=== PATIENT | female | born 1950 | race Caucasian/White ===

== ENCOUNTER → 2017-10-25 11:45 | Outpatient (CLI) | payer MEDICARE, OTHER, SELFPAY ==
[2017-10-25 13:22] LABS: Absolute Lymphocyte Count 2.29 X10^3/ul (0.83-4.51); Absolute Neutrophil Count 6.4 X10^3/uL (2.0-7.7); Basophil# 0.01 X10^3/uL; Basophil% 0.1 % (0-1); Eosinophil# 0.11 X10^3/uL; Eosinophils% 1.2 % (0-5); Hematocrit 41.9 % (37-47); Hemoglobin 13.4 g/dl (12.0-15.0); Lymphocyte # 2.29 X10^3/ul (4.0); Lymphocyte % 24.1 % (19-41); Mean Corpuscular Hgb 31.1 pg (27.0-32.0); Mean Corpuscular Volume 97.2 fL (81-99); Mean Platelet Vol. 9.6 fl (6.2-12.0); Monocyte# 0.67 X10^3/uL; Monocyte% 7.1 % (0-10); Neutrophil % 67.4 % (47-70); Platelet Count 180 K/mm3 (150-450); RBC Distribution Width CV 14.9 % (11.6-14.6); RBC Distribution Width SD 51.4 fl (35.1-43.9); Red Blood Count 4.31 M/mm3 (4.2-5.4); White Blood Count 9.5 K/mm3 (4.4-11.0)
[2017-10-25 13:30] LABS: POSITIVE COUNT NO; POSITIVE DIFFERENTIAL NO; POSITIVE MORPHOLOGY NO
[2017-10-25 13:55] LABS: ALB/GLOB Ratio 0.7 RATIO (0.9-2.4); AST(SGOT) 13 U/L (15-37); Alanine Aminotransfer ALT/SGPT 17 U/L (13-56); Albumin, Serum 2.9 g/dL (3.2-5.0); Alkaline Phosphatase 69 U/L (45-117); Anion Gap 6 (5-15); BUN 27 mg/dL (7-18); BUN/Creat Ratio 30.1 RATIO (10-20); Calcium,Total 8.8 mg/dL (8.5-10.1); Chloride 100 mmol/L (98-107); EST Glomerular Filtration Rate 67 mL/min (>60); Est Glom Filt Rate - Afr Amer 81 mL/min (>60); Glucose 216 mg/dL (74-106); Potassium 4.2 mmol/L (3.5-5.1); Protein, Total 6.9 g/dL (6.4-8.2); Sodium Level 138 mmol/L (136-145)
== END ==
PROVIDERS: Family Provider Family Medicine; PCP Family Medicine; Visit Provider Internal Medicine Rheumatology
DX: L40.59 Other psoriatic arthropathy (principal); Z79.899 Other long term (current) drug therapy; L40.8 Other psoriasis; M79.7 Fibromyalgia; M16.0 Bilateral primary osteoarthritis of hip; M17.0 Bilateral primary osteoarthritis of knee
CPT/HCPCS: 36415; 80053; 85025

== ENCOUNTER → 2017-12-09 12:09 | Outpatient (CLI) | payer MEDICARE, OTHER, SELFPAY ==
[2017-12-09 13:38] LABS: Color, Urine Yellow (Yellow); Glucose, Dipstick 100 mg/dl (Normal); Ketone-Dipstick Negative (Negative); Leukocyte Esterase-Dipstick Negative /ul (Negative); Nitrite-Dipstick Negative (Negative); Occult Blood-Urine Negative /ul (Negative); Protein-Dipstick Negative (Negative); Specific Gravity, Urine 1.015 (1.002-1.030); Urine Bilirubin Dipstick Negative (Negative); Urine Clarity Clear (Clear); Urine Urobilinogen Normal (Normal)
== END ==
PROVIDERS: Family Provider Family Medicine; PCP Family Medicine; Visit Provider Family Medicine
DX: N39.0 Urinary tract infection, site not specified (principal)
CPT/HCPCS: 81002

== ENCOUNTER → 2018-01-03 09:51 | Outpatient (CLI) | payer MEDICARE, OTHER, SELFPAY | PROVIDERS: Family Provider Family Medicine; PCP Family Medicine; Visit Provider Urology | DX: N39.0 Urinary tract infection, site not specified (principal) | CPT/HCPCS: 87086; 87088 ==

== ENCOUNTER → 2018-01-12 11:33 | Outpatient (CLI) | payer MEDICARE, OTHER, SELFPAY ==
[2018-01-12 12:26] LABS: Amphetamine Urine VISTA NEGATIVE (<1000 ng/mL); Barbiturate Urine VISTA NEGATIVE (< 200 ng/mL); Benzodiazepine Urine VISTA NEGATIVE (< 200 ng/mL); Cocaine Urine VISTA NEGATIVE (< 300 ng/mL); Ecstacy Urine VISTA NEGATIVE (< 500 ng/mL); Methadone Urine VISTA NEGATIVE (< 300 ng/mL); PCP Urine VISTA NEGATIVE (< 25 ng/mL); THC Urine VISTA NEGATIVE (< 50 ng/mL); Vista UDS pH Range 6
== END ==
PROVIDERS: Family Provider Family Medicine; PCP Family Medicine; Visit Provider Anesthesiology Pain Medicine
DX: F11.20 Opioid dependence, uncomplicated (principal)
CPT/HCPCS: 80307

== ENCOUNTER → 2018-01-23 13:53 | Outpatient (CLI) | payer MEDICARE, OTHER, SELFPAY ==
[2018-01-23 15:43] LABS: Absolute Lymphocyte Count 1.84 X10^3/ul (0.83-4.51); Absolute Neutrophil Count 7.7 X10^3/uL (2.0-7.7); Basophil# 0.01 X10^3/uL; Basophil% 0.1 % (0-1); Eosinophil# 0.19 X10^3/uL; Eosinophils% 1.8 % (0-5); Hematocrit 41.4 % (37-47); Hemoglobin 12.8 g/dl (12.0-15.0); Lymphocyte # 1.84 X10^3/ul (4.0); Lymphocyte % 17.4 % (19-41); Mean Corp Hgb Conc 30.9 g/gl (32-36); Mean Corpuscular Hgb 29.3 pg (27.0-32.0); Mean Corpuscular Volume 94.7 fL (81-99); Mean Platelet Vol. 9.4 fl (6.2-12.0); Monocyte# 0.87 X10^3/uL; Monocyte% 8.2 % (0-10); Neutrophil # 7.66 X10^3/uL (2.7-7.7); Neutrophil % 72.2 % (47-70); Platelet Count 191 K/mm3 (150-450); RBC Distribution Width CV 15.4 % (11.6-14.6); RBC Distribution Width SD 52.1 fl (35.1-43.9); Red Blood Count 4.37 M/mm3 (4.2-5.4); White Blood Count 10.6 K/mm3 (4.4-11.0)
[2018-01-23 15:47] LABS: ALB/GLOB Ratio 0.8 RATIO (0.9-2.4); AST(SGOT) 10 U/L (15-37); Alanine Aminotransfer ALT/SGPT 18 U/L (13-56); Alkaline Phosphatase 63 U/L (45-117); BUN 22 mg/dL (7-18); BUN/Creat Ratio 24.5 RATIO (10-20); Calcium,Total 9.1 mg/dL (8.5-10.1); Chloride 108 mmol/L (98-107); EST Glomerular Filtration Rate 67 mL/min (>60); Est Glom Filt Rate - Afr Amer 81 mL/min (>60); Globulin 3.8 g/dL (2.2-4.2); Glucose 304 mg/dL (74-106); Potassium 5.3 mmol/L (3.5-5.1); Protein, Total 6.8 g/dL (6.4-8.2); Sodium Level 145 mmol/L (136-145)
[2018-01-23 15:48] LABS: Anion Gap 10 (5-15)
[2018-01-23 16:07] LABS: POSITIVE COUNT NO; POSITIVE DIFFERENTIAL NO; POSITIVE MORPHOLOGY NO
== END ==
PROVIDERS: Family Provider Family Medicine; PCP Family Medicine; Visit Provider Internal Medicine Rheumatology
DX: L40.59 Other psoriatic arthropathy (principal); Z79.899 Other long term (current) drug therapy; L40.8 Other psoriasis; M79.7 Fibromyalgia; M16.0 Bilateral primary osteoarthritis of hip; M17.0 Bilateral primary osteoarthritis of knee
CPT/HCPCS: 36415; 80053; 85025

== ENCOUNTER → 2018-03-03 14:16 | Outpatient (CLI) | payer MEDICARE, OTHER, SELFPAY ==
[2018-03-03 14:57] LABS: Absolute Lymphocyte Count 1.94 X10^3/ul (0.83-4.51); Absolute Neutrophil Count 10.2 X10^3/uL (2.0-7.7); Basophil# 0.01 X10^3/uL; Basophil% 0.1 % (0-1); Eosinophil# 0.14 X10^3/uL; Eosinophils% 1.1 % (0-5); Hematocrit 44.1 % (37-47); Hemoglobin 13.9 g/dl (12.0-15.0); Lymphocyte # 1.94 X10^3/ul (4.0); Lymphocyte % 14.8 % (19-41); Mean Corp Hgb Conc 31.5 g/gl (32-36); Mean Corpuscular Volume 92.1 fL (81-99); Mean Platelet Vol. 9.3 fl (6.2-12.0); Monocyte% 6.1 % (0-10); Neutrophil # 10.16 X10^3/uL (2.7-7.7); Neutrophil % 77.7 % (47-70); Platelet Count 170 K/mm3 (150-450); RBC Distribution Width CV 14.7 % (11.6-14.6); RBC Distribution Width SD 50.3 fl (35.1-43.9); Red Blood Count 4.79 M/mm3 (4.2-5.4); White Blood Count 13.1 K/mm3 (4.4-11.0)
[2018-03-03 14:58] LABS: POSITIVE COUNT NO; POSITIVE DIFFERENTIAL NO; POSITIVE MORPHOLOGY NO
[2018-03-03 15:59] LABS: ALB/GLOB Ratio 0.8 RATIO (0.9-2.4); AST(SGOT) 10 U/L (15-37); Alanine Aminotransfer ALT/SGPT 16 U/L (13-56); Albumin, Serum 3.2 g/dL (3.2-5.0); Alkaline Phosphatase 70 U/L (45-117); Anion Gap 7 (5-15); BUN 20 mg/dL (7-18); BUN/Creat Ratio 22.7 RATIO (10-20); Chloride 107 mmol/L (98-107); Creatinine, Serum 0.88 mg/dL (0.55-1.02); EST Glomerular Filtration Rate 68 mL/min (>60); Est Glom Filt Rate - Afr Amer 82 mL/min (>60); Globulin 4.1 g/dL (2.2-4.2); Glucose 283 mg/dL (74-106); Potassium 4.4 mmol/L (3.5-5.1); Protein, Total 7.3 g/dL (6.4-8.2); Sodium Level 140 mmol/L (136-145)
== END ==
PROVIDERS: Family Provider Family Medicine; PCP Family Medicine; Visit Provider Internal Medicine Rheumatology
DX: L40.59 Other psoriatic arthropathy (principal); Z79.899 Other long term (current) drug therapy; L40.8 Other psoriasis; M79.7 Fibromyalgia; M16.0 Bilateral primary osteoarthritis of hip; M17.0 Bilateral primary osteoarthritis of knee; M21.40 Flat foot [pes planus] (acquired), unspecified foot; K21.9 Gastro-esophageal reflux disease without esophagitis; E11.9 Type 2 diabetes mellitus without complications; I10 Essential (primary) hypertension; K58.9 Irritable bowel syndrome, unspecified; F41.9 Anxiety disorder, unspecified; F32.9 Major depressive disorder, single episode, unspecified; I27.20 Pulmonary hypertension, unspecified; Q03.8 Other congenital hydrocephalus
CPT/HCPCS: 36415; 80053; 85025

== ENCOUNTER → 2018-03-17 13:46 | Outpatient (CLI) | payer MEDICARE, OTHER, SELFPAY ==
[2018-03-17 15:27] LABS: Color, Urine Yellow (Yellow); Glucose, Dipstick 100 mg/dl (Normal); Ketone-Dipstick 5 mg/dl (Negative); Leukocyte Esterase-Dipstick 500 /ul (Negative); Nitrite-Dipstick Positive (Negative); Occult Blood-Urine 150 /ul (Negative); Protein-Dipstick 500 mg/dl (Negative); Specific Gravity, Urine 1.025 (1.002-1.030); Urine Clarity Turbid (Clear); Urine Urobilinogen 1 mg/dl (Normal)
[2018-03-17 15:28] LABS: Urine Bilirubin Dipstick 1 mg/dL (Negative)
== END ==
PROVIDERS: Family Provider Family Medicine; PCP Family Medicine; Visit Provider Family Medicine
DX: K52.9 Noninfective gastroenteritis and colitis, unspecified (principal); R30.0 Dysuria
CPT/HCPCS: 81002; 87086; 87088; 87186; 87493; 87506

== ENCOUNTER 2018-05-17 09:10 | Day surgery (SDC) | payer MEDICARE, OTHER, SELFPAY ==
[2018-05-17] VITALS (7 sets, daily range): BP systolic 116–163; BP diastolic 58–86; PULSE 60–91; RESP 12–18; TEMP 36.4–37; O2SAT 94–99; BMI 42.7
[2018-05-17 09:56] LABS: Bedside Glucose 182 mg/dL (70-110)
[2018-05-17] MEDS: Vancomycin IV 1,000 MG/200 ML BAG 200 MG IV (09:58)
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
[2018-05-17] MEDS: Bupivacaine 0.5% PF 10 ML VIAL (11:55)
[2018-05-17 12:50] LABS: Bedside Glucose 176 mg/dL (70-110)
== END 2018-05-17 15:03 | disposition home or self-care (01) ==
LOC: SDC 09:10 → AC 09:12
PROVIDERS: Family Provider Family Medicine; PCP Family Medicine; Visit Provider Anesthesiology Pain Medicine
PROC: (CPT 22514; principal; 2018-05-17 10:15)
DX: M80.08XA Age-related osteoporosis with current pathological fracture, vertebra(e), initial encounter for fracture (principal); M48.56XA Collapsed vertebra, not elsewhere classified, lumbar region, initial encounter for fracture; M89.9 Disorder of bone, unspecified; M51.17 Intervertebral disc disorders with radiculopathy, lumbosacral region; M51.16 Intervertebral disc disorders with radiculopathy, lumbar region; E11.9 Type 2 diabetes mellitus without complications; K21.9 Gastro-esophageal reflux disease without esophagitis; F41.9 Anxiety disorder, unspecified; F32.9 Major depressive disorder, single episode, unspecified; G47.30 Sleep apnea, unspecified; I27.20 Pulmonary hypertension, unspecified; Z95.0 Presence of cardiac pacemaker; Z87.891 Personal history of nicotine dependence; Z79.84 Long term (current) use of oral hypoglycemic drugs; Z79.891 Long term (current) use of opiate analgesic; Z79.899 Other long term (current) drug therapy
CPT/HCPCS: 22514; 72100; 76000; 82962; J7120; J2405; J3490

== ENCOUNTER → 2018-05-26 13:30 | Outpatient (CLI) | payer MEDICARE, OTHER, SELFPAY ==
[2018-05-26 10:19] LABS: Absolute Lymphocyte Count 1.99 X10^3/ul (0.83-4.51); Basophil# 0.01 X10^3/uL; Basophil% 0.1 % (0-1); Eosinophil# 0.16 X10^3/uL; Eosinophils% 1.8 % (0-5); Hematocrit 38.3 % (37-47); Hemoglobin 11.8 g/dl (12.0-15.0); Lymphocyte # 1.99 X10^3/ul (4.0); Lymphocyte % 22.4 % (19-41); Mean Corp Hgb Conc 30.8 g/gl (32-36); Mean Corpuscular Hgb 27.8 pg (27.0-32.0); Mean Corpuscular Volume 90.3 fL (81-99); Mean Platelet Vol. 8.9 fl (6.2-12.0); Monocyte# 0.74 X10^3/uL; Monocyte% 8.3 % (0-10); Neutrophil # 5.95 X10^3/uL (2.7-7.7); Neutrophil % 67.2 % (47-70); Platelet Count 146 K/mm3 (150-450); RBC Distribution Width CV 14.5 % (11.6-14.6); RBC Distribution Width SD 47.8 fl (35.1-43.9); Red Blood Count 4.24 M/mm3 (4.2-5.4); White Blood Count 8.9 K/mm3 (4.4-11.0)
[2018-05-26 10:22] LABS: POSITIVE COUNT NO; POSITIVE DIFFERENTIAL NO; POSITIVE MORPHOLOGY NO
[2018-05-26 10:45] LABS: ALB/GLOB Ratio 0.6 RATIO (0.9-2.4); AST(SGOT) 9 U/L (15-37); Alanine Aminotransfer ALT/SGPT 10 U/L (13-56); Albumin, Serum 2.7 g/dL (3.2-5.0); Alkaline Phosphatase 58 U/L (45-117); Anion Gap 8 (5-15); BUN 15 mg/dL (7-18); BUN/Creat Ratio 18.3 RATIO (10-20); Calcium,Total 8.6 mg/dL (8.5-10.1); Chloride 110 mmol/L (98-107); Creatinine, Serum 0.82 mg/dL (0.55-1.02); EST Glomerular Filtration Rate 74 mL/min (>60); Est Glom Filt Rate - Afr Amer 90 mL/min (>60); Globulin 4.3 g/dL (2.2-4.2); Glucose 150 mg/dL (74-106); Sodium Level 142 mmol/L (136-145)
== END ==
PROVIDERS: Family Provider Family Medicine; PCP Family Medicine; Referring Provider Urology; Visit Provider Urology
DX: L40.59 Other psoriatic arthropathy (principal); Z79.899 Other long term (current) drug therapy; L40.8 Other psoriasis; M79.7 Fibromyalgia; M16.0 Bilateral primary osteoarthritis of hip; M17.0 Bilateral primary osteoarthritis of knee
CPT/HCPCS: 36415; 80053; 85025

== ENCOUNTER → 2018-06-14 12:58 | Outpatient (CLI) | payer MEDICARE, OTHER, SELFPAY ==
--- NOTE | 2018-06-14 13:02 | US_ITS ---
STUDY: RENAL ULTRASOUND - COMPLETE REASON FOR EXAM: Female, 68 years old. UTI INCONTINENCE HX OF KIDNEY STONES TECHNIQUE: Ultrasound evaluation of the kidneys was performed with real-time and static arias-scale imaging. COMPARISON: None. FINDINGS: RIGHT KIDNEY: Normal location of the right kidney, which is normal in size. The right kidney measures 10.8 x 5.3 x 5.3 cm. There is a normal cortex of the right kidney. The renal cortex measures 1.5 cm. There is no right renal mass or cyst. There are no right renal calculi. There is no right hydronephrosis. DISTAL RIGHT URETER: There is non-visualization of the distal right ureter. There is no demonstrated right ureterovesical junction calculus. There is a visualized right ureteral jet. LEFT KIDNEY: Normal location of the left kidney, which is normal in size. The left kidney measures 10.2 x 4.4 x 5 cm. There is a normal cortex of the left kidney. The renal cortex measures 1.5 cm. There is no left renal mass or cyst. There are no left renal calculi. There is no left hydronephrosis. DISTAL LEFT URETER: There is non-visualization of the distal left ureter. There is no demonstrated left ureterovesical junction calculus. There is a visualized left ureteral jet. AORTA: Not evaluated I.V.C.: Not evaluated BLADDER: The distended urinary bladder has a volume of 383 ml. The empty urinary bladder has a volume of 195 ml. There is a normal wall thickness of the distended urinary bladder. There is no demonstrated mass within the urinary bladder. There are no demonstrated bladder calculi. Single image of the spleen reveals a length of approximately 11 cm. US/Kidney and Bladder IMPRESSION: No demonstrated shadowing renal stone. No evidence of hydronephrosis. See above. Electronically Signed: Nava Smith MD at 9:58 EDT , Service support ,
== END ==
PROVIDERS: Family Provider Family Medicine; PCP Family Medicine; Referring Provider Urology; Visit Provider Urology
DX: N39.0 Urinary tract infection, site not specified (principal); Z87.442 Personal history of urinary calculi
CPT/HCPCS: 76770

== ENCOUNTER → 2018-09-13 12:21 | Outpatient (CLI) | payer MEDICARE, OTHER, SELFPAY ==
--- NOTE | 2018-09-13 12:36 | RAD_ITS ---
STUDY: X-RAY - LUMBAR SPINE REASON FOR EXAM: Female, 68 years old. BACK PAIN TECHNIQUE: 2 view(s) of the lumbar spine were obtained. COMPARISON: May 17, 2018 FINDINGS: Normal lumbar lordosis. There is mild scoliosis. There is vertebroplasty now at L1. Again noted is the mild depression at the superior endplate of L5 There is multilevel endplate spondylosis of the lumbar vertebrae. There is multi-level degenerative disc disease with multi-level disc space narrowing. The soft tissue structures are unremarkable. RAD/Lumbar Spine 2 or 3 Views IMPRESSION: Chronic L1 fracture with vertebroplasty. Degenerative changes of the spine. Electronically Signed: Amada Perez MD at 8:08 EST Tel , Service support ,
--- NOTE | 2018-09-13 12:51 | RAD_ITS ---
STUDY: X-RAY - LEFT SHOULDER REASON FOR EXAM: Female, 68 years old. Left shoulder pain TECHNIQUE: Frontal and scapular Y view(s) of the shoulder. COMPARISON: None. FINDINGS: Normal glenohumeral articulation. Normal acromioclavicular joint. Normal acromion. Mild chronic AC joint arthrosis. Intact clavicle. No significant glenohumeral joint degenerative features. No evidence of dislocation. Intact appearance of the scapula and proximal humerus. Hemithoracic structures within the field of view exhibit no acute process. RAD/Shoulder min 2 Views IMPRESSION: Minimal chronic acromioclavicular joint arthrosis. Electronically Signed: Jose Rodriguez MD at 16:03 EST Tel , Service support ,
== END ==
PROVIDERS: Family Provider Family Medicine; PCP Family Medicine; Referring Provider Anesthesiology Pain Medicine; Visit Provider Anesthesiology Pain Medicine
DX: M54.9 Dorsalgia, unspecified (principal); M25.519 Pain in unspecified shoulder
CPT/HCPCS: 72100; 73030

== ENCOUNTER → 2018-10-23 13:47 | Outpatient (CLI) | payer MEDICARE, OTHER, SELFPAY ==
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
== END ==
PROVIDERS: Family Provider Family Medicine; PCP Family Medicine; Referring Provider Orthopaedic Surgery; Visit Provider Orthopaedic Surgery
DX: M25.512 Pain in left shoulder (principal)
CPT/HCPCS: 73030

== ENCOUNTER → 2018-11-08 13:12 | Outpatient (CLI) | payer MEDICARE, OTHER, SELFPAY ==
[2018-11-08 13:50] LABS: Absolute Lymphocyte Count 1.59 X10^3/ul (0.83-4.51); Absolute Neutrophil Count 5.9 X10^3/uL (2.0-7.7); Basophil# 0.01 X10^3/uL; Basophil% 0.1 % (0-1); Eosinophil# 0.08 X10^3/uL; Hemoglobin 12.6 g/dl (12.0-15.0); Lymphocyte # 1.59 X10^3/ul (4.0); Lymphocyte % 19.5 % (19-41); Mean Corp Hgb Conc 30.7 g/gl (32-36); Mean Corpuscular Hgb 29.7 pg (27.0-32.0); Mean Corpuscular Volume 96.7 fL (81-99); Mean Platelet Vol. 8.9 fl (6.2-12.0); Monocyte# 0.57 X10^3/uL; Neutrophil # 5.89 X10^3/uL (2.7-7.7); Neutrophil % 72.3 % (47-70); Platelet Count 154 K/mm3 (150-450); RBC Distribution Width CV 14.9 % (11.6-14.6); RBC Distribution Width SD 51.1 fl (35.1-43.9); Red Blood Count 4.24 M/mm3 (4.2-5.4); White Blood Count 8.2 K/mm3 (4.4-11.0)
[2018-11-08 13:51] LABS: POSITIVE COUNT NO; POSITIVE DIFFERENTIAL NO; POSITIVE MORPHOLOGY NO
[2018-11-08 14:20] LABS: ALB/GLOB Ratio 0.8 RATIO (0.9-2.4); AST(SGOT) 12 U/L (15-37); Alanine Aminotransfer ALT/SGPT 18 U/L (13-56); Albumin, Serum 3.1 g/dL (3.2-5.0); Alkaline Phosphatase 59 U/L (45-117); Anion Gap 8 (5-15); BUN 30 mg/dL (7-18); BUN/Creat Ratio 33.6 RATIO (10-20); Calcium,Total 8.5 mg/dL (8.5-10.1); Chloride 106 mmol/L (98-107); Creatinine, Serum 0.89 mg/dL (0.55-1.02); EST Glomerular Filtration Rate 67 mL/min (>60); Est Glom Filt Rate - Afr Amer 81 mL/min (>60); Globulin 3.9 g/dL (2.2-4.2); Glucose 204 mg/dL (74-106); Potassium 4.5 mmol/L (3.5-5.1); Sodium Level 141 mmol/L (136-145)
== END ==
PROVIDERS: Family Provider Family Medicine; PCP Family Medicine; Referring Provider Internal Medicine Rheumatology; Visit Provider Internal Medicine Rheumatology
DX: L40.59 Other psoriatic arthropathy (principal); Z79.899 Other long term (current) drug therapy; L40.8 Other psoriasis; M79.7 Fibromyalgia; M16.0 Bilateral primary osteoarthritis of hip; M17.0 Bilateral primary osteoarthritis of knee
CPT/HCPCS: 36415; 80053; 85025

== ENCOUNTER → 2019-01-02 12:51 | Outpatient (CLI) | payer MEDICARE, OTHER, SELFPAY ==
[2019-01-02 15:41] LABS: Amphetamine Urine VISTA NEGATIVE (<1000 ng/mL); Barbiturate Urine VISTA NEGATIVE (< 200 ng/mL); Benzodiazepine Urine VISTA NEGATIVE (< 200 ng/mL); Cocaine Urine VISTA NEGATIVE (< 300 ng/mL); Ecstacy Urine VISTA NEGATIVE (< 500 ng/mL); Methadone Urine VISTA NEGATIVE (< 300 ng/mL); PCP Urine VISTA NEGATIVE (< 25 ng/mL); THC Urine VISTA NEGATIVE (< 50 ng/mL); Vista UDS pH Range 6
== END ==
PROVIDERS: Family Provider Family Medicine; PCP Family Medicine; Referring Provider Anesthesiology Pain Medicine; Visit Provider Anesthesiology Pain Medicine
DX: F11.20 Opioid dependence, uncomplicated (principal)
CPT/HCPCS: 80307

== ENCOUNTER → 2019-03-22 11:51 | Outpatient (CLI) | payer MEDICARE, OTHER, SELFPAY ==
[2019-03-22 12:41] LABS: Potassium 4.4 mmol/L (3.5-5.1)
== END ==
PROVIDERS: Family Provider Family Medicine; PCP Family Medicine; Referring Provider Urology; Visit Provider Urology
DX: N39.0 Urinary tract infection, site not specified (principal)
CPT/HCPCS: 36415; 84132

== ENCOUNTER → 2019-04-23 14:09 | Outpatient (CLI) | payer MEDICARE, OTHER, SELFPAY | PROVIDERS: Family Provider Family Medicine; PCP Family Medicine; Visit Provider Family Medicine | DX: N39.0 Urinary tract infection, site not specified (principal) | CPT/HCPCS: 87077; 87086; 87088; 87186 ==

== ENCOUNTER → 2019-05-14 10:45 | Outpatient (CLI) | payer MEDICARE, OTHER, SELFPAY ==
[2019-05-14 12:33] LABS: Color, Urine Yellow (Yellow); Glucose, Dipstick 50 mg/dl (Normal); Ketone-Dipstick Negative (Negative); Leukocyte Esterase-Dipstick 500 /ul (Negative); Nitrite-Dipstick Negative (Negative); Occult Blood-Urine 50 /ul (Negative); Protein-Dipstick 100 mg/dl (Negative); Urine Bilirubin Dipstick Negative (Negative); Urine Clarity Cloudy (Clear); Urine Urobilinogen 1 mg/dl (Normal)
[2019-05-14 12:49] LABS: Potassium 4.6 mmol/L (3.5-5.1)
== END ==
PROVIDERS: Family Provider Family Medicine; PCP Family Medicine; Referring Provider Urology; Visit Provider Urology
DX: R30.0 Dysuria (principal); N39.0 Urinary tract infection, site not specified
CPT/HCPCS: 36415; 81002; 84132; 87077; 87086; 87088; 87186

== ENCOUNTER → 2019-05-25 14:38 | Outpatient (CLI) | payer MEDICARE, OTHER, SELFPAY ==
[2019-05-25 17:35] LABS: Absolute Lymphocyte Count 2.42 X10^3/uL (0.83-4.51); Absolute Neutrophil Count 6.6 X10^3/uL (2.0-7.7); Basophil# 0.02 X10^3/uL; Basophil% 0.2 % (0-1); Eosinophil# 0.14 X10^3/uL; Eosinophils% 1.4 % (0-5); Hematocrit 42.2 % (37-47); Hemoglobin 12.9 g/dL (12.0-15.0); Lymphocyte # 2.42 X10^3/ul (4.0); Lymphocyte % 24.3 % (19-41); Mean Corp Hgb Conc 30.6 g/dL (32-36); Mean Corpuscular Hgb 28.9 pg (27.0-32.0); Mean Corpuscular Volume 94.4 fL (81-99); Mean Platelet Vol. 9.4 fl (6.2-12.0); Monocyte# 0.76 X10^3/uL; Monocyte% 7.6 % (0-10); NRBC Flagged by Analyzer 0 % (0-5); Neutrophil # 6.57 X10^3/uL (2.7-7.7); Neutrophil % 65.9 % (47-70); Platelet Count 177 K/mm3 (150-450); RBC Distribution Width CV 14.4 % (11.6-14.6); RBC Distribution Width SD 49.8 fl (35.1-43.9); Red Blood Count 4.47 M/mm3 (4.2-5.4)
[2019-05-25 17:49] LABS: ALB/GLOB Ratio 0.8 RATIO (0.9-2.4); AST(SGOT) 9 U/L (15-37); Alanine Aminotransfer ALT/SGPT 14 U/L (13-56); Alkaline Phosphatase 60 U/L (45-117); Anion Gap 8 (5-15); BUN 24 mg/dL (7-18); BUN/Creat Ratio 26.8 RATIO (10-20); Calcium,Total 8.4 mg/dL (8.5-10.1); Chloride 107 mmol/L (98-107); EST Glomerular Filtration Rate 67 mL/min (>60); Est Glom Filt Rate - Afr Amer 80 mL/min (>60); Globulin 3.9 g/dL (2.2-4.2); Glucose 181 mg/dL (74-106); Potassium 4.4 mmol/L (3.5-5.1); Protein, Total 6.9 g/dL (6.4-8.2); Sodium Level 141 mmol/L (136-145)
== END ==
PROVIDERS: Family Provider Family Medicine; PCP Family Medicine; Referring Provider Internal Medicine Rheumatology; Visit Provider Internal Medicine Rheumatology
DX: L40.59 Other psoriatic arthropathy (principal); Z79.899 Other long term (current) drug therapy; L40.8 Other psoriasis; M79.7 Fibromyalgia; M16.0 Bilateral primary osteoarthritis of hip; M17.0 Bilateral primary osteoarthritis of knee; M21.40 Flat foot [pes planus] (acquired), unspecified foot
CPT/HCPCS: 36415; 80053; 85025

== ENCOUNTER → 2019-06-05 16:27 | Outpatient (CLI) | payer MEDICARE, OTHER, SELFPAY | LOC: LAB.FUTURE 16:31 → BFHLAB 07-27 10:59 | PROVIDERS: Family Provider Family Medicine; PCP Family Medicine; Referring Provider Family Medicine; Visit Provider Family Medicine | DX: N39.0 Urinary tract infection, site not specified (principal) | CPT/HCPCS: 87077; 87086; 87088 ==

== ENCOUNTER → 2019-06-29 13:02 | Outpatient (CLI) | payer MEDICARE, OTHER, SELFPAY ==
--- NOTE | 2019-06-29 13:07 | VDLE_ITS ---
Reason For Study: lymphedema, varicose veins RIGHT LEFT CFV is compressible, spontaneous, phasic, CFV is compressible, spontaneous, phasic, competent and demonstrates normal competent, and demonstrates normal augmentation. augmentation. FV is compressible, spontaneous, phasic, FV is compressible, spontaneous, phasic, competent and demonstrates normal competent and demonstrates normal augmentation. augmentation. POP V is compressible, spontaneous, phasic, POP V is compressible, spontaneous, phasic, competent and demonstrates normal competent and demonstrates normal augmentation. augmentation. T/P Trunk is compressible. T/P Trunk is compressible. PTV is compressible. PTV is compressible. RT PerV is compressible. GSV proximal thigh measures .42 x .42 cm. GSV proximal thigh measures .44 x .47 cm. GSV at knee measures .32 x .33 cm. GSV at knee measures .37 x .36 cm. GSV is competent throughout. GSV is competent throughout. SSV proximal calf is competent and SSV proximal calf is competent and measures .34 x .36 cm. measures .15 x .14 cm. Peroneal V is dilated and noncompressible. ASV in the proximal thigh is incompetent for greater than .5 seconds. ASV measures .53 cm. Varicose veins in the thigh are dilated and noncompressible. Procedure Exam performed in department. The exam was diagnostic. A preliminary report was called and/or faxed to Dr. Joseph's office. Interpretation Summary Acute deep vein thrombosis is noted in the left peroneal vein. The remainder of the left lower extremity deep venous system is patent and compressible. Deep veins of the right lower extremity are patent and compressible segmentally. There is no evidence of right lower extremity deep vein thrombosis. Valvular competence appears intact within the proximal deep venous systems bilaterally. The great saphenous veins appear bilaterally patent and compressible segmentally. Valvular competence appears to be intact segmentally within the great saphenous veins bilaterally. Small saphenous veins are patent and competent bilaterally. The right accessory saphenous vein in the proximal right thigh is incompetent. Acute superficial thrombophlebitis is noted involving superficial varicosities in the right thigh. Ordering Physician: Kasandra Joseph Performed By: Edgardo Blackwood RVT
== END ==
PROVIDERS: Family Provider Family Medicine; PCP Family Medicine; Referring Provider Family Medicine; Visit Provider Family Medicine
DX: I83.11 Varicose veins of right lower extremity with inflammation (principal); I89.0 Lymphedema, not elsewhere classified; I83.12 Varicose veins of left lower extremity with inflammation; M79.604 Pain in right leg; M79.605 Pain in left leg
CPT/HCPCS: 93970

== ENCOUNTER → 2019-07-16 12:03 | Outpatient (CLI) | payer MEDICARE, OTHER, SELFPAY ==
--- NOTE | 2019-07-16 12:05 | CT_ITS ---
STUDY: CTA CHEST REASON FOR EXAM: Female, 69 years old. Patient has a diagnosis of lower extremity DVT. Possible pulmonary embolism. RADIATION DOSAGE (If Supplied By Facility): CTDIvol = ( 14.63 ) mGy, DLP = ( 755.48 ) mGycm TECHNIQUE: The examination was performed with the intravenous administration of IV Isovue 370 100. Post-processing of the angiographic images was performed, with multiplanar reformation and 3D reconstruction. Individualized dose optimization techniques were used for this CT. COMPARISON: None. FINDINGS: The left lobe of the thyroid gland is not visualized. There are small nonocclusive bilateral pulmonary emboli in branches of the right and left lower lobe pulmonary arteries. Small filling defects are also seen in small branches of the right upper lobe pulmonary arteries. Normal thoracic aorta and visualized great vessels. There is no demonstrated aortic dissection. Normal heart and pericardium. Normal mediastinum. Normal hilar regions. Normal visualized trachea and bronchi. The lungs are well expanded. Normal pulmonary parenchyma. Normal pleura. Normal chest wall structures. There are degenerative changes of thoracic spine. Prior vertebroplasty of the T12 or L1 vertebral body. Normal visualized upper abdomen. CT/CTA Chest W/WO Contrast IMPRESSION: Multiple small nonobstructive bilateral pulmonary emboli. Electronically Signed: Len Cowan, at 15:08 EST , Service support ,
[2019-07-16 12:15] LABS: CREATININE FINGERSTICK 0.9 mg/dL (0.55-1.02); EGFR FINGERSTICK > 60.0000 mL/min (>60)
== END ==
PROVIDERS: Family Provider Family Medicine; PCP Family Medicine; Referring Provider Family Medicine; Visit Provider Family Medicine
DX: R06.00 Dyspnea, unspecified (principal); I82.409 Acute embolism and thrombosis of unspecified deep veins of unspecified lower extremity
CPT/HCPCS: 71275; Q9967

== ENCOUNTER → 2019-09-24 14:18 | Outpatient (CLI) | payer MEDICARE, OTHER, SELFPAY | PROVIDERS: PCP Family Medicine; Visit Provider Family Medicine | DX: R30.0 Dysuria (principal) | CPT/HCPCS: 87077; 87086; 87088; 87186 ==

== ENCOUNTER → 2019-10-15 14:16 | Outpatient (CLI) | payer MEDICARE, OTHER, SELFPAY | PROVIDERS: Family Provider Family Medicine; PCP Family Medicine; Visit Provider Family Medicine | DX: I82.409 Acute embolism and thrombosis of unspecified deep veins of unspecified lower extremity (principal); I26.99 Other pulmonary embolism without acute cor pulmonale; L89.90 Pressure ulcer of unspecified site, unspecified stage | CPT/HCPCS: 87070; 87075; 87077; 87205 ==

== ENCOUNTER → 2019-10-29 16:56 | Outpatient (CLI) | payer MEDICARE, OTHER, SELFPAY ==
[2019-10-29 18:13] LABS: Amphetamine Urine VISTA NEGATIVE (<1000 ng/mL); Barbiturate Urine VISTA NEGATIVE (< 200 ng/mL); Benzodiazepine Urine VISTA NEGATIVE (< 200 ng/mL); Cocaine Urine VISTA NEGATIVE (< 300 ng/mL); Ecstacy Urine VISTA NEGATIVE (< 500 ng/mL); Methadone Urine VISTA NEGATIVE (< 300 ng/mL); PCP Urine VISTA NEGATIVE (< 25 ng/mL); THC Urine VISTA NEGATIVE (< 50 ng/mL); Vista UDS pH Range 6
== END ==
PROVIDERS: PCP Family Medicine; Referring Provider Anesthesiology Pain Medicine; Visit Provider Anesthesiology Pain Medicine
DX: F11.20 Opioid dependence, uncomplicated (principal)
CPT/HCPCS: 80307

== ENCOUNTER 2019-11-19 12:30 | Outpatient (RCR) | payer MEDICARE, OTHER, SELFPAY ==
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
--- NOTE | 2020-04-08 08:48 | HP.PT.NRP ---
BONNIE GRIMES was seen in my office for initial evaluation on 10/31/19. The following Plan of Care was established for this patient: Initial Frequency: 2x /Week Initial Duration: 4 Weeks Patient/Client Instruction: Educate patient on: Condition, Plan of Care For the Purpose of:: To decrease pain, To increase ROM, To improve nutrient delivery to tissue, To improve muscle performance and motor function, To improve ability to perform ADL's, To increase tolerance to activity/condition/position, To improve performance and independence with ADL's, To decrease level of supervision to perform tasks, To improve ability of physical actions for home/community/work/leisure, To improve gait and locomotor functions, To improve health of tissue, To increase flexibility/ROM Therapeutic Exercise to Include: Strength training, Endurance training, Postural training, Flexibilty training, Gait and locomotor training, Active ROM, Dynamic Lumbar Stabilization, Scapular Strength/Stabilization For the Purpose of:: To decrease pain, To increase ROM, To improve nutrient delivery to tissue, To improve muscle performance and motor function, To improve ability to perform ADL's, To increase tolerance to activity/condition/position, To improve performance and independence with ADL's, To decrease level of supervision to perform tasks, To improve ability of physical actions for home/community/work/leisure, To improve gait and locomotor functions, To decrease soft tissue restriction, To increase flexibility/ROM Functional Training to Include: Gait training For the Purpose of:: To improve gait and locomotor functions, To improve safety with gait This patient was last seen in our office 11/19/19. Pertinent comments regarding their Physical therapy will appear below: [facility]. does not want her to go to PT at this time due to COVID-19 At this point I will be discontinuing this patient from physical therapy. I would be happy to see this patient again in the future if found appropriate by the physician. Thank you! Daisy Null, MPT
== END 2019-11-19 19:00 | disposition home or self-care (01) ==
LOC: PT 12:30
PROVIDERS: PCP Family Medicine; Referring Provider Anesthesiology Pain Medicine; Visit Provider Anesthesiology Pain Medicine
DX: M54.9 Dorsalgia, unspecified (principal); R53.1 Weakness
CPT/HCPCS: 97110; 97162

== ENCOUNTER 2020-01-22 05:55 | Day surgery (SDC) | payer MEDICARE, OTHER, SELFPAY ==
--- NOTE | 2020-01-21 13:41 | EKG12_ITS ---
Test Reason : PREOP Blood Pressure : / mmHG Vent. Rate : 060 BPM Atrial Rate : 059 BPM P-R Int : 000 ms QRS Dur : 094 ms QT Int : 424 ms P-R-T Axes : 000 006 031 degrees QTc Int : 424 ms Junctional rhythm Low voltage QRS Abnormal ECG Confirmed by KAMRAN CUELLO, KIRK ([id number]), senior technical editor ERIS MURILLO ([id number]) on 01/22/2020 3:28:16 PM Referred By: Radha Oconnell Confirmed By:KIRK ANDREW MD
[2020-01-21 14:05] LABS: Hematocrit 41.2 % (37-47); Hemoglobin 12.1 g/dL (12.0-15.0); Mean Corp Hgb Conc 29.4 g/dL (32-36); Mean Corpuscular Hgb 28.1 pg (27.0-32.0); Mean Corpuscular Volume 95.6 fL (81-99); Platelet Count 204 K/mm3 (150-450); RBC Distribution Width CV 14.4 % (11.6-14.6); Red Blood Count 4.31 M/mm3 (4.2-5.4); White Blood Count 8.3 K/mm3 (4.4-11.0)
[2020-01-21 14:27] LABS: Anion Gap 5 (5-15); BUN 34 mg/dL (7-18); BUN/Creat Ratio 26.6 RATIO (10-20); Calcium,Total 8.9 mg/dL (8.5-10.1); Chloride 109 mmol/L (98-107); Creatinine, Serum 1.28 mg/dL (0.55-1.02); EST Glomerular Filtration Rate 44 mL/min (>60); Est Glom Filt Rate - Afr Amer 53 mL/min (>60); Glucose 91 mg/dL (74-106); Potassium 5.3 mmol/L (3.5-5.1); Sodium Level 138 mmol/L (136-145)
[2020-01-21 14:34] LABS: Hemoglobin A1c 6.5 % (4.2-6.3)
[2020-01-22] VITALS (7 sets, daily range): BP systolic 100–125; BP diastolic 46–64; PULSE 64–85; RESP 14–20; TEMP 36.2–37.6; O2SAT 93–100; BMI 44.4
--- NOTE | 2020-01-22 | BLA_PTH ---
PATIENT: BONNIE GRIMES LOC: [facility] [place] U#:[id number] AGE/SX: 69/F ROOM: RE01/22/[address]: Dr. Radha Oconnell MD : 1950 BED: DIS: 01/22/2020 SPEC #: [id number] RECD: 01/22/20 12:41 STATUS: RODERICK REQ #: [id number] NINO: 01/22/20 00:[address]: Radha Oconnell DEPT: SURGICAL PATHOLOGY RECD BY: Jarrod Spicer ENTERED: 01/22/20 12:41 SP TYPE: BLADDER BX OTHR DR: Dr. Kasandra Joseph DO Tissues: Urinary bladder, NOS Procedures: Surgery Specimen Level IV HEADER OPERATION: Cysto, bladder biopsy, fulguration PRE-OP DIAGNOSIS: Erythematous bladder mucosa; recurrent urinary tract infection TISSUE SUBMITTED: Bladder biopsy MICROSCOPIC DIAGNOSIS Bladder, biopsy: Fragments of urothelial mucosa with moderate acute and chronic inflammation, granulation tissue reaction. Extensive squamous metaplasia with hyperkeratosis. Negative for malignancy. See comment. THIEN:lonny 01/23/20 COMMENT Detrusor muscle is not seen in the specimen. Correlation with clinical, cystoscopic findings and appropriate follow up are necessary. MICROSCOPIC DESCRIPTION Slides are reviewed. GROSS DESCRIPTION Received in fixative is one container labeled with the patient's name and designated bladder biopsy. The specimen consists of four irregular fragments of grande-pink soft tissue that in aggregate measure 0.4 x 0.2 x 0.1 cm. The entire specimen is submitted in one cassette. / THIEN:lonny 01/22/20 TC:2 CPT: 66312
[2020-01-22 06:45] LABS: Prothrombin Time Fingerstick 14.3 SEC (11.9-14.4)
[2020-01-22 06:45] LABS: Bedside Glucose 107 mg/dL (70-110)
--- NOTE | 2020-01-22 07:17 | HP.PCM_ITS ---
Problem List (1) Erythematous bladder mucosa Status: Acute (2) Recurrent urinary tract infection Status: Acute History of Present Illness Date of Admission: 01/22/20 Chief Complaint: recurrent urinary tract infection, erythematous bladder mucosa The patient is a 69 year old F who has been struggling with recurrent urinary tract infections for several years. She recently underwent a repeat cystoscopy in the office for evaluation and was found to have diffusely erythematous bladder mucosa. The decision was made to take her for further evaluation with a bladder biopsy. Risks, benefits, alternatives including the risk of COVID-19 were discussed with the patient and her daughter and both decided to proceed. Past Medical History Past Medical History (Chronic Problems): Chronic Problems (Last Reviewed 09/12/18 @ 18:51 by Lianet Amador) Other secondary pulmonary hypertension (Chronic) Unstable angina (Chronic) Chest wall pain (Chronic) Palpitations (Chronic) Hypokalemia (Chronic) Nonrheumatic mitral (valve) stenosis (Chronic) HLD (hyperlipidemia) (Chronic) Cardiac pacemaker in situ (Chronic) PPM 09/26/2010 [facility] Diabetes mellitus (Chronic) Bradycardia (Chronic) Sinoatrial node dysfunction (Chronic) IBS (irritable bowel syndrome) (Chronic) Chronic UTI (Chronic) Rheumatoid arthritis (Chronic) DM2 (diabetes mellitus, type 2) (Chronic) HTN (hypertension) (Chronic) Morbid obesity (Chronic) ZAHIRA (obstructive sleep apnea) (Chronic) Chest pain (Chronic) Medical History: Medical History (Last Reviewed 01/22/20 @ 07:[address] Radha Oconnell MD) Other secondary pulmonary hypertension (Chronic) I27.29 Unstable angina (Chronic) I20.0 Chest wall pain (Chronic) R07.89 Palpitations (Chronic) R00.2 Hypokalemia (Chronic) E87.6 Nonrheumatic mitral (valve) stenosis (Chronic) I34.2 HLD (hyperlipidemia) (Chronic) E78.5 Diabetes mellitus (Chronic) E11.9 Bradycardia (Chronic) R00.1 Sinoatrial node dysfunction (Chronic) I49.5 HTN (hypertension) (Chronic) I10 Asthma J45.909 DDD (degenerative disc disease), lumbar M51.36 Diabetic neuropathy E11.40 Dysuria R30.0 Elevated C-reactive protein R79.82 Elevated sedimentation rate R70.0 Essential tremor G25.0 Fatigue R53.83 GERD (gastroesophageal reflux disease) K21.9 IBS (irritable bowel syndrome) K58.9 Myalgia M79.1 Peripheral neuropathy G62.9 Syncope and collapse R55 Allergies ciprofloxacin [From Cipro] Allergy (Verified 01/18/20 16:04) Other epinephrine Allergy (Verified 01/18/20 16:04) Hives ibuprofen Allergy (Verified 01/18/20 16:04) Anaphylaxis Penicillins [PCN] Allergy (Verified 01/18/20 16:04) Hives cefdinir Adverse Reaction (Verified 01/18/20 16:04) Unknown lidocaine Adverse Reaction (Verified 01/18/20 16:04) Unknown Home Medications: Ambulatory Orders Medication Instructions Recorded ALPRAZolam [Xanax] 0.5 mg PO DAILY 11/26/16 Acetaminophen [Extra Strength 500 mg PO PRN PRN 11/26/16 Non-Aspirin] Alendronate Sodium [Fosamax] 70 mg PO BEGUM 11/26/16 Citalopram [Celexa] 60 mg PO QHS 11/26/16 Gabapentin [Neurontin] 300 mg PO TID 11/26/16 Omeprazole [Prilosec] 40 mg PO DAILY 11/26/16 glipizide 10 mg tablet 10 mg PO BID tab 01/26/18 Glipizide [Glucotrol Xl] 20 mg PO QHS 05/15/18 Spironolactone [Aldactone] 25 mg PO BID 05/15/18 Topiramate [Topamax] 100 mg PO BID 05/15/18 Lisinopril [Zestril] 2.5 mg PO DAILY 01/18/20 Albuterol Aerosols [Ventolin 2.5 mg INHALATION Q4H PRN PRN 01/21/20 Aerosols] Albuterol IH (ProAir) [Proair Hfa 1 - 2 puff INHALATION Q6H PRN PRN 01/21/20 (SP)Vent Pts] Colestipol HCl 1 gm PO BID 01/21/20 Cyanocobalamin [Vitamin B12] 1,000 mcg PO DAILY@0800 01/21/20 Enoxaparin Sodium [Lovenox] 150 mg SQ DAILY 01/21/20 Folic Acid 2 mg PO DAILY 01/21/20 Ondansetron HCl [Zofran] 4 mg PO PRN PRN 01/21/20 Oxybutynin Chloride [Oxybutynin 15 mg PO DAILY 01/21/20 Chloride ER] Pioglitazone [Actos] 45 mg PO DAILY 01/21/20 Trimethoprim [Trimpex] 100 mg PO DAILY 01/21/20 Warfarin Sodium [Coumadin] 5 mg PO DAILY 01/21/20 traMADol [Ultram (G)] 50 mg PO DAILY 01/21/20 Surgical History: Surgical History (Last Reviewed 01/22/20 @ 07:[address] Radha Oconnell MD) Cardiac pacemaker in situ (Chronic) Z95.0 PPM 09/26/2010 [facility] History of cholecystectomy Onset Date: ~2014 Z90.49 History of hysterectomy Z90.710 History of tonsillectomy and adenoidectomy Z98.890 Hx of breast surgery Z98.890 removal of left breast mass hx vaginal mesh Onset Date: ~2003 Surgical History: pacemaker implantation Smoking Status: Former smoker Tobacco Use: Non-smoker - *Family History Paternal Family History: Family History (Last Reviewed 09/12/18 @ 18:51 by Lianet Amador) Father Heart disease Asthma Grandmother Cancer Mother Cancer History Items: Heart Disease Review of Systems Constitutional: Reports: Fatigue. Denies: Anorexia, Chills, Fever, Night Sweats Eyes: Denies: Vision Change HEENT: Denies: Difficulty Hearing, Difficulty Swallowing Cardiovascular: Denies: Chest Pain, Chest Pressure Respiratory: Denies: Cough, Shortness of Breath Gastrointestinal: Denies: Abdominal Pain, Nausea, Vomiting Genitourinary: Reports: Dysuria, Frequency, Incontinence, Nocturia, Urgency Gynecological: Denies: Breast symptoms, Vaginal bleeding Musculoskeletal: Denies: Muscle pain Skin: Denies: Wounds Neurological: Denies: Difficulty swallowing Endocrine: Denies: Change in Body Habitus VTE Information - Inpt Only VTE Present on Admission: Yes VTE Mechan Device Prophylaxis: SCD's VTE Pharm Prophylaxis ordered?: No Reason prophylaxis not ordered:: Treatment Not Indicated Patient Problems: Active and Suspected Problems (Last Reviewed 09/12/18 @ 18:51 by Lianet Amador) Erythematous bladder mucosa (Acute) Recurrent urinary tract infection (Acute) - Physical Exam Vitals/I&O's: Vital Signs Temp Pulse Resp BP Pulse Ox 98.4 F 64 16 123/64 H 100 01/22/20 06:39 01/22/20 06:39 01/22/20 06:39 01/22/20 06:39 01/22/20 06:39 Oxygen Delivery Method Room Air Weight: 113.8 kg Body Mass Index (BMI) 44.4 General: Alert, Oriented x3, Cooperative, No apparent distress HEENT: Atraumatic, Normocephalic Oral: Moist Mucosa Neck: Supple, Trachea Midline Lungs: Clear to auscultation, Normal air movement Cardiovascular: Regular rate, Regular Rhythm Abdomen: Soft, Non Tender, Non-Distended, Obese Extremities: No cyanosis Skin: No rashes Musculoskeletal: No Muscle Wasting Neurological: Cranial nerves II-XII grossly intact, Neuro grossly intact Psych/Mental Status: Normal Affect, Alert and oriented to time, place, person, mood and affect Microbiology Past 72 Hours 01/21/20 12:30 Mucosa - Nasopharyngeal Coronavirus COVID-19 PCR - Final Laboratory Results 01/21/20 07:20: Sodium 138, Potassium 5.3 H, Chloride 109 H, Carbon Dioxide 24.0, Anion Gap 5, BUN 34 H, Creatinine 1.28 H, Est GFR (MDRD) Af Amer 53 L, Est GFR (MDRD) Non-Af 44 L, BUN/Creatinine Ratio 26.6 H, Glucose 91, Calcium 8.9 01/21/20 07:20: Hemoglobin A1c 6.5 H 01/21/20 11:55: WBC 8.3, RBC 4.31, Hgb 12.1, Hct 41.2, MCV 95.6, MCH 28.1, MCHC 29.4 L, RDW Std Deviation 50.0 H, RDW Coeff of Gal 14.4, Plt Count 204, MPV 9.0 01/22/20 06:41: POC Glucose 107 01/22/20 06:42: POC PT 14.3, INR 1.10 01/22/20 12:30: COVID-19 (TANESHA) Cancelled Current Medications Clindamycin Phosphate 900 mg/ (Dextrose) 106 mls @ 150 mls/hr IV X1 ONE Stop: 01/22/20 07:45 Assessment/Plan All Active Problems (Last Reviewed 09/12/18 @ 18:51 by Lianet Amador) Erythematous bladder mucosa (Acute) Recurrent urinary tract infection (Acute) Cystoscopy with bladder biopsy and fulguration under anesthesia Essential Procedure Criteria Procedure Essential: Yes Criteria Note: On 11/20/2019 the [place] Department of Health ([facility]) Public Order signed by [facility] Director Mahsa Hinton M.D., regarding the Management of Non- Essential Surgeries and Procedures for the purpose of preserving Personal Protective Equipment (PPE) and critical hospital capacity and resources within [place] went into effect as of 11/21/2019 at 5:00PM. According to the [facility] Public Order: This action will remain in full force and effect until the State of Emergency declared by the Governor no longer exists or the Director of the [facility] rescinds or modifies this Order.. This [facility] order stated all non-essential or elective surgeries and procedures that utilize PPE should be delayed unless t here is undue risk to the current or future health of a patient. After reviewing the aforementioned [facility] Public Order and the patients clinical case, I have determined that the scheduled procedure meets the criteria to go forward. Risk to Patient if Procedure Delayed: Presence of severe symptoms causing an inability to perform ADL's - severe dysuria, bladder pain, urinary incontinence and recurrent infection on multiple rounds of antibiotics
[2020-01-22] MEDS: Ipratropium/Albuterol Sulfate 3 ML AMPUL.NEB INHALATION ×2 (07:21→08:47)
[2020-01-22] MEDS: Lactated Ringers 1,000 ML 100 ML IV ×2 (07:23→09:33)
--- NOTE | 2020-01-22 07:23 | OP.PCM_ITS ---
Problem List (1) Erythematous bladder mucosa Status: Acute (2) Recurrent urinary tract infection Status: Acute Report of Operation Date of Procedure: 01/22/20 Pre-Operative Diagnosis: recurrent urinary tract infections, erythematous bladder mucosa Post-Operative Diagnosis: same, 2 areas of white plaque about 1cm each, one posterior bladder wall, the other left lateral bladder wall Surgery/Procedure Performed:: cystoscopy, bladder biopsy with fulguration Type of Anesthesia:: General Specimen's removed: bladder mucosal biopsy Estimated Blood Loss (mL): 2-3cc Description of Procedure: The patient is a 69-year-old female with recurrent urinary tract infections and bladder mucosal erythema diffuse on office cystoscopy. Now presents for cystoscopy and bladder biopsy for further evaluation and management. The risks, benefits and alternatives were discussed with the patient and her daughter including the risk of COVID-19, and they agreed to proceed. Patient was taken to the operating room and placed on the operating room table. Anesthesia monitored the head, neck, airway, IV access and vital signs throughout the case. Once anesthesia was appropriately administered the patient was placed into dorsal lithotomy position was prepped and draped in usual steril e fashion. A pelvic examination revealed no prolapse including cystocele rectocele and vault prolapse. There is no palpable mesh exposure. There is palpable scar tissue surrounding the urethra. At this time, the cystoscope was inserted through the urethra under direct visualization into the urinary bladder. The urethra was well visualized, and open at the area of the bladder neck. There is no mesh erosion into the urethra. Upon visualization of the urinary bladder, the ureteral orifices were identified in the area of the trigone. Just lateral to the left ureteral orifice there is an area approximately 1 cm in size of white plaque. Another lesion similar to this was identified in the posterior bladder wall. No other areas of mass, ulceration were identified. The remainder of the bladder was erythematous. Biopsy forceps were used to take biopsies of both lesions in both areas were fulgurated for hemostatic control and tissue treatment. At this time the patient's bladder was emptied and the case was terminated. She was awakened and taken to the recovery room in good condition. There were no complications during the procedure. Grafts/Implants Used: none - Complications none - Admit VTE Documentation VTE Present on Admission: Yes VTE Mechan Device Prophylaxis: SCD's VTE Pharm Prophylaxis ordered?: No Reason prophylaxis not ordered:: Treatment Not Indicated - she will restart coumadin today
--- NOTE | 2020-01-22 07:25 | DCINST_ITS ---
Discharge Diet: Carb Control Diet Discharge Activity: Return to Normal Activity, May not drive while taking narcotic pain medications. Call your doctor if you observe: Fever of 101 or Higher, Inability to urinate, Inability to have a bowel movement Allergies/Adverse Reactions: Allergies ciprofloxacin [From Cipro] Allergy (Verified 01/18/20 16:04) Other epinephrine Allergy (Verified 01/18/20 16:04) Hives ibuprofen Allergy (Verified 01/18/20 16:04) Anaphylaxis Penicillins [PCN] Allergy (Verified 01/18/20 16:04) Hives cefdinir Adverse Reaction (Verified 01/18/20 16:04) Unknown lidocaine Adverse Reaction (Verified 01/18/20 16:04) Unknown Medications to take at Discharge ALPRAZolam [Xanax] 0.5 mg PO DAILY 11/26/16 Acetaminophen [Extra Strength Non-Aspirin] 500 mg PO PRN PRN 11/26/16 Alendronate Sodium [Fosamax] 70 mg PO BEGUM 11/26/16 Citalopram [Celexa] 60 mg PO QHS 11/26/16 Gabapentin [Neurontin] 300 mg PO TID 11/26/16 Omeprazole [Prilosec] 40 mg PO DAILY 11/26/16 glipizide 10 mg tablet 10 mg PO BID tab 01/26/18 Glipizide [Glucotrol Xl] 20 mg PO QHS 05/15/18 Spironolactone [Aldactone] 25 mg PO BID 05/15/18 Topiramate [Topamax] 100 mg PO BID 05/15/18 Lisinopril [Zestril] 2.5 mg PO DAILY 01/18/20 Albuterol Aerosols [Ventolin Aerosols] 2.5 mg INHALATION Q4H PRN PRN 01/21/20 Albuterol IH (ProAir) [Proair Hfa (SP)Vent Pts] 1 - 2 puff INHALATION Q6H PRN PRN 01/21/20 Colestipol HCl 1 gm PO BID 01/21/20 Cyanocobalamin [Vitamin B12] 1,000 mcg PO DAILY@0800 01/21/20 Enoxaparin Sodium [Lovenox] 150 mg SQ DAILY 01/21/20 Folic Acid 2 mg PO DAILY 01/21/20 Ondansetron HCl [Zofran] 4 mg PO PRN PRN 01/21/20 Oxybutynin Chloride [Oxybutynin Chloride ER] 15 mg PO DAILY 01/21/20 Pioglitazone [Actos] 45 mg PO DAILY 01/21/20 Trimethoprim [Trimpex] 100 mg PO DAILY 01/21/20 Warfarin Sodium [Coumadin] 5 mg PO DAILY 01/21/20 traMADol [Ultram (G)] 50 mg PO DAILY 01/21/20 Primary Care Physician: Kasandra Joseph DO [Primary Care Provider] - Test Results: Test results from this visit will be discussed in further detail at your follow- up appointment, if applicable. Please Follow Up With: Radha Oconnell MD When: call office for appt next week Proposed Discharge Date: 01/22/20
== END 2020-01-22 10:33 | disposition home or self-care (01) ==
LOC: SDC 05:56 → AC 05:56
PROVIDERS: Anesthesiology; PCP Family Medicine; Referring Provider Urology; Visit Provider Urology
PROC: 0TBB8ZX Excision of Bladder, Via Natural or Artificial Opening Endoscopic, Diagnostic (ICD-10-PCS; CPT 52204; principal; 2020-01-22 07:20)
DX: L53.8 Other specified erythematous conditions (principal); L57.0 Actinic keratosis; Z87.440 Personal history of urinary (tract) infections; Z11.59 Encounter for screening for other viral diseases; Z79.01 Long term (current) use of anticoagulants; Z79.51 Long term (current) use of inhaled steroids; Z79.84 Long term (current) use of oral hypoglycemic drugs; Z82.49 Family history of ischemic heart disease and other diseases of the circulatory system; Z95.0 Presence of cardiac pacemaker; Z90.710 Acquired absence of both cervix and uterus; Z88.1 Allergy status to other antibiotic agents; Z88.0 Allergy status to penicillin; Z87.891 Personal history of nicotine dependence; E78.5 Hyperlipidemia, unspecified; I10 Essential (primary) hypertension; K21.9 Gastro-esophageal reflux disease without esophagitis; M06.9 Rheumatoid arthritis, unspecified; J45.909 Unspecified asthma, uncomplicated; G47.33 Obstructive sleep apnea (adult) (pediatric); E66.01 Morbid (severe) obesity due to excess calories; E11.9 Type 2 diabetes mellitus without complications; K58.9 Irritable bowel syndrome, unspecified; I27.29 Other secondary pulmonary hypertension; Z68.41 Body mass index [BMI] 40.0-44.9, adult
CPT/HCPCS: 52204; 36415; 36416; 80048; 82962; 83036; 85027; 85610; 87635; 88305; 93005; 94640; G2023; J7120; J2405; U0002

== ENCOUNTER → 2020-05-27 13:57 | Outpatient (CLI) | payer MEDICARE, OTHER, SELFPAY ==
[2020-01-22 06:39] VITALS: BMI 44.4
--- NOTE | 2020-05-27 14:04 | RAD_ITS ---
STUDY: X-RAY - RIGHT KNEE REASON FOR EXAM: Right knee pain and swelling. TECHNIQUE: 4 view(s) of the knee. COMPARISON: None. FINDINGS: Normal visualized distal femur. There is chronic healed fracture deformity of the proximal fibular diaphysis. Normal proximal tibiofibular articulation. Normal medial femorotibial compartment. Normal lateral femorotibial compartment. There is moderate to severe joint space narrowing of the patellofemoral articulation. The soft tissue structures are unremarkable. RAD/Knee 4 or More Views IMPRESSION: Patellofemoral arthrosis. Chronic healed fracture deformity of the proximal fibula. Electronically Signed: Colin Wilson MD at 9:17 EDT Tel , Service support ,
--- NOTE | 2020-05-27 14:04 | RAD_ITS ---
STUDY: X-RAY - LEFT KNEE REASON FOR EXAM: Left knee pain and swelling. TECHNIQUE: 4 view(s) of the knee. COMPARISON: Radiographs 02/16/2017. FINDINGS: Normal visualized distal femur. Normal visualized proximal tibia and fibula. Normal proximal tibiofibular articulation. Normal medial femorotibial compartment. Normal lateral femorotibial compartment. There is moderate joint space narrowing of the patellofemoral articulation as on the prior study. The soft tissue structures are unremarkable. RAD/Knee 4 or More Views IMPRESSION: Patellofemoral arthrosis. Electronically Signed: Colin Wilson MD at 9:41 EDT Tel , Service support ,
[2020-05-27 15:56] LABS: Absolute Lymphocyte Count 2.24 X10^3/uL (0.83-4.51); Basophil# 0.03 X10^3/uL; Basophil% 0.3 % (0-1); Eosinophil# 0.17 X10^3/uL; Eosinophils% 1.5 % (0-5); Hematocrit 40.5 % (37-47); Hemoglobin 12.2 g/dL (12.0-15.0); Lymphocyte # 2.24 X10^3/ul (4.0); Lymphocyte % 19.7 % (19-41); Mean Corp Hgb Conc 30.1 g/dL (32-36); Mean Corpuscular Hgb 29.3 pg (27.0-32.0); Mean Corpuscular Volume 97.1 fL (81-99); Mean Platelet Vol. 9.1 fl (6.2-12.0); Monocyte# 0.86 X10^3/uL; Monocyte% 7.6 % (0-10); NRBC Flagged by Analyzer 0 % (0-5); Neutrophil # 8.04 X10^3/uL (2.7-7.7); Neutrophil % 70.5 % (47-70); Platelet Count 193 K/mm3 (150-450); RBC Distribution Width CV 13.3 % (11.6-14.6); RBC Distribution Width SD 47.2 fl (35.1-43.9); Red Blood Count 4.17 M/mm3 (4.2-5.4); White Blood Count 11.4 K/mm3 (4.4-11.0)
[2020-05-27 16:27] LABS: ALB/GLOB Ratio 0.8 RATIO (0.9-2.4); AST(SGOT) 10 U/L (15-37); Alanine Aminotransfer ALT/SGPT 14 U/L (13-56); Alkaline Phosphatase 72 U/L (45-117); Anion Gap 6 (5-15); BUN 21 mg/dL (7-18); BUN/Creat Ratio 23.3 RATIO (10-20); CRP 3.21 mg/L (0.0-3.0); Calcium,Total 8.9 mg/dL (8.5-10.1); Chloride 108 mmol/L (98-107); EST Glomerular Filtration Rate 66 mL/min (>60); Est Glom Filt Rate - Afr Amer 80 mL/min (>60); Globulin 3.9 g/dL (2.2-4.2); Glucose 202 mg/dL (74-106); Potassium 4.4 mmol/L (3.5-5.1); Protein, Total 6.9 g/dL (6.4-8.2); Sodium Level 141 mmol/L (136-145)
[2020-05-27 16:50] LABS: Erythrocyte Sedimentation Rate 24 mm/hr (0-30)
== END ==
PROVIDERS: PCP Family Medicine; Referring Provider Internal Medicine Rheumatology; Visit Provider Internal Medicine Rheumatology
DX: M17.0 Bilateral primary osteoarthritis of knee (principal); L40.59 Other psoriatic arthropathy; Z79.899 Other long term (current) drug therapy; L40.8 Other psoriasis; M79.7 Fibromyalgia; M16.0 Bilateral primary osteoarthritis of hip
CPT/HCPCS: 36415; 73564; 80053; 85025; 85652; 86140

== ENCOUNTER → 2020-11-27 12:26 | Outpatient (CLI) | payer MEDICARE, OTHER, SELFPAY ==
[2020-01-22 06:39] VITALS: BMI 44.4
[2020-11-27 13:39] LABS: Absolute Lymphocyte Count 1.68 X10^3/uL (0.83-4.51); Absolute Neutrophil Count 6.6 X10^3/uL (2.0-7.7); Basophil# 0.02 X10^3/uL; Basophil% 0.2 % (0-1); Eosinophils% 2.2 % (0-5); Hematocrit 38.4 % (37-47); Hemoglobin 11.7 g/dL (12.0-15.0); Lymphocyte # 1.68 X10^3/ul (4.0); Lymphocyte % 18.2 % (19-41); Mean Corp Hgb Conc 30.5 g/dL (32-36); Mean Corpuscular Hgb 30.2 pg (27.0-32.0); Mean Corpuscular Volume 99.2 fL (81-99); Mean Platelet Vol. 9.2 fl (6.2-12.0); Monocyte# 0.67 X10^3/uL; Monocyte% 7.3 % (0-10); NRBC Flagged by Analyzer 0 % (0-5); Neutrophil # 6.62 X10^3/uL (2.7-7.7); Neutrophil % 71.9 % (47-70); Platelet Count 164 K/mm3 (150-450); RBC Distribution Width CV 15.6 % (11.6-14.6); RBC Distribution Width SD 55.9 fl (35.1-43.9); Red Blood Count 3.87 M/mm3 (4.2-5.4); White Blood Count 9.2 K/mm3 (4.4-11.0)
[2020-11-27 13:41] LABS: Color, Urine Yellow (Yellow); Glucose, Dipstick Normal (Normal); Ketone-Dipstick Negative (Negative); Leukocyte Esterase-Dipstick 500 /ul (Negative); Nitrite-Dipstick Positive (Negative); Occult Blood-Urine 25 /ul (Negative); Protein-Dipstick Negative (Negative); Specific Gravity, Urine 1.015 (1.002-1.030); Urine Bilirubin Dipstick Negative (Negative); Urine Clarity Sl. Cloudy (Clear); Urine Urobilinogen Normal (Normal)
[2020-11-27 14:21] LABS: ALB/GLOB Ratio 0.8 RATIO (0.9-2.4); AST(SGOT) 13 U/L (15-37); Alanine Aminotransfer ALT/SGPT 16 U/L (13-56); Alkaline Phosphatase 56 U/L (45-117); Anion Gap 3 (5-15); BUN 27 mg/dL (7-18); Chloride 109 mmol/L (98-107); Creatinine, Serum 0.82 mg/dL (0.55-1.02); EST Glomerular Filtration Rate 74 mL/min (>60); Est Glom Filt Rate - Afr Amer 89 mL/min (>60); Ferritin 87 ng/mL (8-252); Globulin 3.8 g/dL (2.2-4.2); Glucose 125 mg/dL (74-106); Iron 39 ug/dL (50-170); Potassium 5.1 mmol/L (3.5-5.1); Protein, Total 6.8 g/dL (6.4-8.2); Sodium Level 141 mmol/L (136-145); Thyroid Stim Hormone (TSH) 1.84 uIU/mL (0.358-3.74)
[2020-11-27 17:10] LABS: Vitamin B12 281 pg/mL (211-911)
== END ==
PROVIDERS: Family Medicine; PCP Family Medicine; Referring Provider Family Medicine; Visit Provider Family Medicine
DX: E87.5 Hyperkalemia (principal); N18.32 Chronic kidney disease, stage 3b; R53.83 Other fatigue; D64.9 Anemia, unspecified; N39.0 Urinary tract infection, site not specified
CPT/HCPCS: 80053; 81002; 82607; 82728; 83540; 84443; 85025; 87077; 87086; 87088; 87186

== ENCOUNTER → 2021-01-12 15:44 | Outpatient (CLI) | payer MEDICARE, OTHER, SELFPAY ==
[2021-01-01 11:07] VITALS: BMI 46.9
[2021-01-12 18:09] LABS: Absolute Lymphocyte Count 1.86 X10^3/uL (0.83-4.51); Absolute Neutrophil Count 7.7 X10^3/uL (2.0-7.7); Basophil# 0.03 X10^3/uL; Basophil% 0.3 % (0-1); Eosinophil# 0.09 X10^3/uL; Eosinophils% 0.9 % (0-5); Hematocrit 45.3 % (37-47); Hemoglobin 13.6 g/dL (12.0-15.0); Lymphocyte # 1.86 X10^3/ul (0.83-4.51); Lymphocyte % 17.8 % (19-41); Mean Corpuscular Hgb 29.4 pg (27.0-32.0); Mean Corpuscular Volume 98.1 fL (81-99); Mean Platelet Vol. 9.4 fl (6.2-12.0); Monocyte# 0.75 X10^3/uL; Monocyte% 7.2 % (0-10); NRBC Flagged by Analyzer 0 % (0-5); Neutrophil # 7.67 X10^3/uL (2.7-7.7); Neutrophil % 73.5 % (47-70); Platelet Count 193 K/mm3 (150-450); RBC Distribution Width CV 14.4 % (11.6-14.6); RBC Distribution Width SD 52.3 fl (35.1-43.9); Red Blood Count 4.62 M/mm3 (4.2-5.4); White Blood Count 10.4 K/mm3 (4.4-11.0)
[2021-01-12 18:18] LABS: ALB/GLOB Ratio 0.8 RATIO (0.9-2.4); AST(SGOT) 9 U/L (15-37); Alanine Aminotransfer ALT/SGPT 19 U/L (13-56); Albumin, Serum 3.3 g/dL (3.2-5.0); Alkaline Phosphatase 76 U/L (45-117); Anion Gap 5 (5-15); BUN 29 mg/dL (7-18); BUN/Creat Ratio 32.6 RATIO (10-20); Calcium,Total 8.8 mg/dL (8.5-10.1); Chloride 104 mmol/L (98-107); Creatinine, Serum 0.89 mg/dL (0.55-1.02); EST Glomerular Filtration Rate 67 mL/min (>60); Est Glom Filt Rate - Afr Amer 81 mL/min (>60); Globulin 4.2 g/dL (2.2-4.2); Glucose 181 mg/dL (74-106); Potassium 5.1 mmol/L (3.5-5.1); Protein, Total 7.5 g/dL (6.4-8.2); Sodium Level 136 mmol/L (136-145)
== END ==
PROVIDERS: PCP Family Medicine; Referring Provider Internal Medicine Rheumatology; Visit Provider Internal Medicine Rheumatology
DX: L40.59 Other psoriatic arthropathy (principal); Z79.899 Other long term (current) drug therapy; L40.8 Other psoriasis; M79.7 Fibromyalgia; M16.0 Bilateral primary osteoarthritis of hip; M17.0 Bilateral primary osteoarthritis of knee; M21.40 Flat foot [pes planus] (acquired), unspecified foot; K21.9 Gastro-esophageal reflux disease without esophagitis; E11.9 Type 2 diabetes mellitus without complications; I10 Essential (primary) hypertension; K58.9 Irritable bowel syndrome, unspecified; F41.9 Anxiety disorder, unspecified; F32.89 Other specified depressive episodes; R32 Unspecified urinary incontinence; Z95.0 Presence of cardiac pacemaker; Q03.8 Other congenital hydrocephalus; I27.20 Pulmonary hypertension, unspecified
CPT/HCPCS: 36415; 80053; 85025

== ENCOUNTER → 2021-01-16 06:36 | Outpatient (CLI) | payer MEDICARE, OTHER, SELFPAY ==
[2021-01-01 11:07] VITALS: BMI 46.9
--- NOTE | 2021-01-16 08:16 | TELEMED_ITS ---
[facility] has confirmed receipt of a request for visit. This document confirms receipt of the order initiating the consult. To find the results of the consultation, please view the patient's reports for the scanned Telemed Consult.
== END ==
PROVIDERS: PCP Family Medicine; Referring Provider Psychiatry & Neurology Neurology; Visit Provider Psychiatry & Neurology Neurology
DX: G40.909 Epilepsy, unspecified, not intractable, without status epilepticus (principal)
CPT/HCPCS: 95819

== ENCOUNTER → 2021-02-05 18:13 | Outpatient (CLI) | payer MEDICARE, OTHER, SELFPAY ==
[2021-02-05 13:53] VITALS: BMI 46.9
== END ==
PROVIDERS: PCP Family Medicine; Referring Provider Family Medicine; Visit Provider Family Medicine
DX: R30.0 Dysuria (principal)
CPT/HCPCS: 87077; 87086; 87088; 87186

== ENCOUNTER → 2021-02-17 16:55 | Outpatient (CLI) | payer MEDICARE, OTHER, SELFPAY ==
[2021-02-05 13:53] VITALS: BMI 46.9
--- NOTE | 2021-02-17 17:18 | RAD_ITS ---
STUDY: X-RAY - PELVIS REASON FOR EXAM: Female, 71 years old. FALL TECHNIQUE: One view of the pelvis was obtained. COMPARISON: None. FINDINGS: There is a non-specific bowel gas pattern. Normal visualized soft tissue structures. Normal bilateral iliac wings, sacroiliac joints and visualized sacrum. Normal visualized bilateral superior and inferior pubic rami. Normal pubic symphysis. Normal ischial tuberosities. Normal visualized right femoral head. Normal right acetabulum. Narrowed right hip joint. Normal visualized left femoral head. Normal left acetabulum. Narrowed left hip joint. RAD/Pelvis 1 or 2 Views IMPRESSION: Arthritic changes of the hips. No evidence for acute pelvic or hip fracture Electronically Signed: Darrel Collier MD at 22:54 EDT , Service support ,
--- NOTE | 2021-02-17 17:18 | RAD_ITS ---
STUDY: X-RAY - SACRUM/COCCYX REASON FOR EXAM: Female, 71 years old. FALL TECHNIQUE: 3 view(s) of the sacrum and coccyx were obtained. COMPARISON: None. FINDINGS: Normal bilateral sacroiliac joints. Normal visualized sacral ala and fused sacral bodies. Normal sacrococcygeal junction with a normal angulation. Normal coccygeal segments. Prior vertebral plasty of the L1 vertebrae. Loss of height of the superior endplate of the L5 vertebrae. Compression fractures should be ruled out. The presacral soft tissue structures are unremarkable. RAD/Sacrum-Coccyx min 2 Views IMPRESSION: Loss of height of the L5 vertebrae. This space narrowing at the L5-S1 level. Electronically Signed: Len Cowan MD at 8:30 EDT , Service support ,
--- NOTE | 2021-02-17 17:18 | RAD_ITS ---
STUDY: X-RAY - LUMBAR SPINE REASON FOR EXAM: Female, 71 years old. FALL TECHNIQUE: 3 view(s) of the lumbar spine were obtained. COMPARISON: None FINDINGS: Normal lumbar lordosis. There is no substantial scoliosis. There is a normal alignment of the vertebrae. There is wedging of superior endplate of L5 with mild irregularity of the endplates suggesting recent injury. Old compression fracture of L1 status post kyphoplasty Grade 1 retrolisthesis at L2-3 with narrowing of disc space and endplate spurring The soft tissue structures are unremarkable. RAD/Lumbar Spine 2 or 3 Views IMPRESSION: Findings suspicious for acute compression of L5 however would recommend CT or MRI for further assessment Electronically Signed: Darrel Collier MD at 18:44 EDT , Service support ,
== END ==
PROVIDERS: PCP Family Medicine; Referring Provider Anesthesiology Pain Medicine; Visit Provider Anesthesiology Pain Medicine
DX: R29.890 Loss of height (principal); W19.XXXA Unspecified fall, initial encounter; Y93.9 Activity, unspecified; Y92.89 Other specified places as the place of occurrence of the external cause; Y99.9 Unspecified external cause status
CPT/HCPCS: 72100; 72170; 72220

== ENCOUNTER 2021-02-23 15:00 | Outpatient (RCR) | payer MEDICARE, OTHER, SELFPAY ==
[2020-01-22 06:39] VITALS: BMI 44.4
--- NOTE | 2020-10-22 19:00 | HP.PTEVAL_ITS ---
Patient's Visit Information BONNIE GRIMES is a 70 year old F referred to Physical Therapy by Dr. Kasandra Joseph DO with a diagnosis of Back Pain. Date of Evaluation: 10/22/20 Physical Therapist: IZZY Patel - Visit Plan Frequency: 1-2x /Week Duration: 6 Weeks Plan: 2X/ week for 3 weeks and the 1 X/ week for 3 weeks to work on sit to stand transfers, trial of steps, LE strengthening, core stability, gait endurance, balance exercises with HEP - Subjective Pts daughter did not want her to come back because of COVID. Dr Blanchard wanted her to come cause she is very weak with walking and getting out of chairs etc. She has a nurse 2 hours a day and they encourage her to walk. She has a lot of weakness on the L side and now she started with weakness on the R. So she feels weak in both legs. Dr Blanchard thinks she is full of arthritis. She uses her rollator all the time. SHe sleeps in bed and has problems getting in and out of the bed and has certain ways that she does it... crawls into the bed on her R knee but now her R knee is bad now. Dr Blanchard wants her to see an orthopedic for her R knee. She also has a bed rail. She has not fallen recently. She fell out of 1/2 out of bed about a week ago. She walks with a rollator. She has stairs at her house but does not use them. She really wants to try and do the stairs here at the clinic. Sit to stand is difficult and it takes her multiple attempts with the use of her arms. Pt reports that her L side is numb ( her L hand is tingling)....he does not know about this and she knows that she has shoulder problems. She is able to walk back to the treatment room but it is a long walk for her. SHe can not stand to do dishes or laundry. She walks physically bent over a lot and can not stand up... her son will physically pull her back to get her to stand up straight. Her back does not hurt with sitting. It hurts with standing and causes her to fold over in half. She has no leg pain. She has numbness on the top of B thighs that comes and goes and n ot at the same time. She has no trouble sleeping and takes Narco. Son reports that pt has trouble with handicapped toilets due to L arm weakness and struggles to get her L hand back on arm rests of toilet bars - Pain back pain Pain Intensity (Out of 10): 4 - Objective Gait: walks with a rollator with B ER of B feet and decrease step length. She leans over her rollator with gait with flexed trunk. LE MMT: B hip flex 3-/5 B, B knee flex 3+/5, B knee ext 3+/5, B hip abd 3-/5, able to do 1/2 normal ROM Bridge,. Supine to sit: max A for trunk. Supine to R S/L with min A. Sit to supine with verbal cues to straighten out body. Sit to stand: pt is able to stand using B hand rails after 3-4 attempts. UE MMT: shld flex, abd, ER, IR , bicep 3+/5 B - Goals Goal 1:: I HEP Goal Time Frame: 4-6 Weeks Goal 2:: Increase LE strength by 1/2 muscle grade (at time of eval: LE MMT: B hip flex 3-/5 B, B knee flex 3+/5, B knee ext 3+/5, B hip abd 3-/5, able to do 1/2 normal ROM Bridge) Goal Time Frame: 4-6 Weeks Goal 3:: Be able to get out of a chair on the first attempt with B hand rails 5/5 times) Goal Time Frame: 4-6 Weeks Goal 4:: Be able to walk with the rollator back to the treatment area with rollator with ease Goal Time Frame: 4-6 Weeks Goal 5:: Be able to go up and down stairs recip with 1 handrail Goal Time Frame: 4-6 Weeks Goal 6:: Decrease back pain with walking/ standing by 50% Goal Time Frame: 4-6 Weeks - Rehabilitation Potential Rehabilitation Potential: Good - Anticipated Interventions Patient/Client Instruction: Educate patient on: Condition, Plan of Care For the Purpose of:: To decrease pain, To increase ROM, To improve muscle performance and motor function, To improve ability to perform ADL's, To increase tolerance to activity/condition/position, To improve performance and independence with ADL's, To decrease level of supervision to perform tasks, To improve ability of physical actions for home/community/work/leisure, To improve gait and locomotor functions, To improve health of tissue, To decrease soft tissue restriction, To increase flexibility/ROM, To improve endurance, To improve balance, To improve safety with gait Therapeutic Exercise to Include: Strength training, Postural training, Flexibilty training, Gait and locomotor training, Passive ROM, Active ROM, Scapular Strength/Stabilization For the Purpose of:: To decrease pain, To decrease swelling/inflammation, To increase ROM, To increase oxygenation perfusion, To improve muscle performance and motor function, To improve ability to perform ADL's, To increase tolerance to activity/condition/position, To improve performance and independence with ADL's, To improve health of tissue, To decrease soft tissue restriction, To increase flexibility/ROM, To improve safety with gait Functional Training to Include: Gait training For the Purpose of:: To improve gait and locomotor functions, To improve safety with gait Thank you for the opportunity to evaluate your patient. For Medicare and Medicare HMO plans, please review the plan of care and approve it. It will need to be FAXED BACK to us at [phone] for Medicare purposes. For Medicare only, by signing this I certify the plan of care. Please let me know if there are questions or concerns regarding this plan of care. Physician Signature: Date:
--- NOTE | 2021-02-24 13:45 | HP.PTDCSUM_ITS ---
It has been my pleasure to treat BONNIE GRIMES referred by Dr. Kasandra Joseph DO, with the diagnosis of Back Pain for a total of 10 visit(s). Discharge Date: 02/24/21 Please see the following information for a summary of their discharge status. Subjective: Pt has fallen and squad called multiple times since she was here last. She does not know what happened. She feels that she broke her coxxyc again and has pain. She can not walk. The squad has been called multiple times. She is having memory issues. She struggled getting to the car from the house with a walker and her balance was bad. She has fallen 4-5 times in the last month. Son said that Dr Blanchard wants PT and is working on her pain. Pt reports that she is tired just getting to and into the car. Son said she is home bound except for Dr foss. She sees Dr Blanchard on . Son helps her get into bed at night and caregiver gets her out in the morning. Son pulls mom to stand at home. back pain Pain Intensity (Out of 10): 0 neck pain Pain Intensity (Out of 10): 5 legs Pain Intensity (Out of 10): 5 R knee pain Pain Intensity (Out of 10): 5 % Improvement: 10 Objective/Function: No goals have been met due to decrease in status and falls 4-5 times in the last month. Discussed Home Health PT for more consistency and because by the time she walked to the car, struggled to get into the car, got out of the car, walked to the bathroom and could not get off the toilet and was tired for PT. Exercises today increased pt pain Goal 1:: I HEP Goal 2:: Increase LE strength by 1/2 muscle grade (at time of eval: LE MMT: B hip flex 3-/5 B, B knee flex 3+/5, B knee ext 3+/5, B hip abd 3-/5, able to do 1/2 normal ROM Bridge) Goal 3:: Be able to get out of a chair on the first attempt with B hand rails 5/5 times) Goal 4:: Be able to walk with the rollator back to the treatment area with ponchoa ricki with ease Goal 5:: Be able to go up and down stairs recip with 1 handrail Goal 6:: Decrease back pain with walking/ standing by 50% Goal Progress: Goal Met Plan: Dr Blanchard agreed to home health.... DC PT to HOME health Discharge Comments: DC PT to HOME HEALTH HEALTH STATUS HAS changed with falling etc. If there are questions or concerns regarding this patient's physical therapy, please feel free to call me at [phone]. Thank you for the referral of this patient. Sincerely, Daisy Null, MPT
== END 2021-02-23 19:00 | disposition home or self-care (01) ==
LOC: PT 15:00
PROVIDERS: PCP Family Medicine; Referring Provider Family Medicine; Visit Provider Family Medicine
DX: M54.9 Dorsalgia, unspecified (principal)
CPT/HCPCS: 97110; 97163; 97530

== ENCOUNTER 2021-03-06 07:27 | Day surgery (SDC) | payer MEDICARE, OTHER, SELFPAY ==
[2021-02-05 13:53] VITALS: BMI 46.9
[2021-03-06] VITALS (7 sets, daily range): BP systolic 112–160; BP diastolic 48–84; PULSE 62–79; RESP 16–18; TEMP 36.2–36.4; O2SAT 88–97; BMI 47.2
[2021-03-06] MEDS: Lactated Ringers 1,000 ML 100 ML IV (08:32)
[2021-03-06 09:11] LABS: INR Fingerstick 1.2; Prothrombin Time Fingerstick 14.7 SEC (11.9-14.4)
[2021-03-06] MEDS: Vancomycin IV 1,000 MG/200 ML BAG 200 MG IV (09:29)
--- NOTE | 2021-03-06 10:20 | RAD_ITS ---
CLINICAL HISTORY: Female, 71 years old. Compression fracture of the L5 vertebra. PROCEDURE: KYPHOPLASTY - L5 FLUOROSCOPY TIME (if supplied): (3 minutes) minutes/seconds. 4 spot images were obtained. Intraoperative imaging provided for vertebral plasty of the L5 vertebrae. RAD/Lumbar Spine 2 or 3 Views IMPRESSION: Intraoperative imaging provided for vertebral plasty of the L5 vertebrae. Electronically Signed: Len Cowan MD at 8:13 EDT , Service support ,
[2021-03-06 10:31] LABS: Bedside Glucose 113 mg/dL (70-110)
[2021-03-06] MEDS: Bupivacaine Mpf 0.5% 30 ML VIAL (11:08)
[2021-03-06 12:20] LABS: Bedside Glucose 130 mg/dL (70-110)
== END 2021-03-06 14:55 ==
LOC: SDC 07:27 → AC 07:28
PROVIDERS: PCP Family Medicine; Referring Provider Anesthesiology Pain Medicine; Visit Provider Anesthesiology Pain Medicine
PROC: (CPT 22514; principal; 2021-03-06 08:40)
DX: M54.16 Radiculopathy, lumbar region (principal); M51.36 Other intervertebral disc degeneration, lumbar region; M51.37 Other intervertebral disc degeneration, lumbosacral region; M80.08XA Age-related osteoporosis with current pathological fracture, vertebra(e), initial encounter for fracture; Z79.01 Long term (current) use of anticoagulants; E11.9 Type 2 diabetes mellitus without complications; I10 Essential (primary) hypertension; E78.5 Hyperlipidemia, unspecified; G40.909 Epilepsy, unspecified, not intractable, without status epilepticus
CPT/HCPCS: 22514; 36416; 72020; 72100; 76000; 82962; 85610; J7120; J2405

== ENCOUNTER → 2021-03-12 15:01 | Outpatient (CLI) | payer MEDICARE, OTHER, SELFPAY ==
[2021-03-06 08:33] VITALS: BMI 47.2
[2021-03-12 17:36] LABS: Color, Urine Yellow (Yellow); Glucose, Dipstick Normal (Normal); Ketone-Dipstick 5 mg/dl (Negative); Leukocyte Esterase-Dipstick 500 /ul (Negative); Nitrite-Dipstick Negative (Negative); Occult Blood-Urine 50 /ul (Negative); Protein-Dipstick Negative (Negative); Urine Bilirubin Dipstick Negative (Negative); Urine Clarity Cloudy (Clear); Urine Urobilinogen 1 mg/dl (Normal)
[2021-03-12 17:42] LABS: Hemoglobin 12.5 g/dL (12.0-15.0); Mean Corp Hgb Conc 30.5 g/dL (32-36); Mean Corpuscular Hgb 29.9 pg (27.0-32.0); Mean Corpuscular Volume 98.1 fL (81-99); Platelet Count 190 K/mm3 (150-450); RBC Distribution Width CV 14.2 % (11.6-14.6); RBC Distribution Width SD 51.1 fl (35.1-43.9); Red Blood Count 4.18 M/mm3 (4.2-5.4); White Blood Count 9.1 K/mm3 (4.4-11.0)
[2021-03-12 17:46] LABS: International Normalized Ratio 1.6; Prothrombin Time (Protime)PT. 18.3 SECONDS (11.7-14.9)
[2021-03-12 18:36] LABS: Vitamin B12 > 2000 pg/mL (211-911)
[2021-03-12 18:46] LABS: BUN 23 mg/dL (7-18); Creatinine, Serum 0.93 mg/dL (0.55-1.02); EST Glomerular Filtration Rate 63 mL/min (>60); Glucose 180 mg/dL (74-106)
[2021-03-12 18:47] LABS: ALB/GLOB Ratio 0.7 RATIO (0.9-2.4); AST(SGOT) 10 U/L (15-37); Alanine Aminotransfer ALT/SGPT 17 U/L (13-56); Albumin, Serum 2.8 g/dL (3.2-5.0); Alkaline Phosphatase 87 U/L (45-117); Anion Gap 7 (5-15); BUN/Creat Ratio 24.8 RATIO (10-20); Calcium,Total 8.3 mg/dL (8.5-10.1); Chloride 103 mmol/L (98-107); Est Glom Filt Rate - Afr Amer 77 mL/min (>60); Potassium 4.4 mmol/L (3.5-5.1); Protein, Total 6.8 g/dL (6.4-8.2); Sodium Level 137 mmol/L (136-145); Thyroid Stim Hormone (TSH) 0.99 uIU/mL (0.358-3.74)
[2021-03-14 20:08] LABS: Free Kappa Light Chains 25.2 mg/L (3.3-19.4); Free Lambda Light Chains 23.1 mg/L (5.7-26.3)
== END ==
PROVIDERS: PCP Family Medicine; Referring Provider Psychiatry & Neurology Neurology; Visit Provider Psychiatry & Neurology Neurology
DX: I82.402 Acute embolism and thrombosis of unspecified deep veins of left lower extremity (principal); G62.9 Polyneuropathy, unspecified; I10 Essential (primary) hypertension; F03.90 Unspecified dementia, unspecified severity, without behavioral disturbance, psychotic disturbance, mood disturbance, and anxiety; R26.89 Other abnormalities of gait and mobility; G40.909 Epilepsy, unspecified, not intractable, without status epilepticus; R00.1 Bradycardia, unspecified; N39.0 Urinary tract infection, site not specified
CPT/HCPCS: 36415; 80053; 81002; 82140; 82607; 82746; 83883; 84443; 85027; 85610; 87077; 87086; 87088; 87186

== ENCOUNTER → 2021-03-16 14:05 | Outpatient (CLI) | payer MEDICARE, OTHER, SELFPAY ==
[2021-03-06 08:33] VITALS: BMI 47.2
--- NOTE | 2021-03-16 14:06 | CT_ITS ---
STUDY: CT LUMBAR SPINE WITHOUT CONTRAST REASON FOR EXAM: Female, 71 years old. Low back pain, increased left leg weakness, coccyx pain RADIATION DOSAGE (If Supplied By Facility): CTDIvol = ( 60.01 ) mGy, DLP = ( 2043.23 ) mGycm TECHNIQUE: The patient was scanned in a multi detector CT scanner. High resolution transaxial imaging was performed. Images were obtained from T12 to S1 vertebral level. Sagittal and coronal images were reconstructed. Individualized dose optimization techniques were used for this CT. COMPARISON: Comparison is made with prior examination dated 06/23/2016. FINDINGS: Normal lumbar lordosis. There is a mild dextroscoliosis of the lumbar spine. There is 50% loss of height of the L1 vertebrae. There is evidence of prior vertebral plasty of the vertebrae. L1-2: 50% loss of height of the L1 vertebrae with the prior vertebroplasty. L2-3: Moderate degree of disc space narrowing. 2 mm retrolisthesis of L2 on L3. L3-4: Mild degree of disc space narrowing and disc degeneration. Hypertrophy of the facet joints and mild degree of diffuse posterior disc. Mild degree of bilateral neural foraminal stenosis. L4-5: Mild degree of disc space narrowing and disc degeneration. Facet joint osteoarthritis and hypertrophy. Mild degree of bilateral neural foraminal stenosis. L5-S1: Moderate degree of disc space narrowing and degeneration. Facet joint osteoarthritis. Spinal stenosis. 10% loss of height of the superior endplate of the L1 vertebrae. There is evidence of a vertebral plasty cement in the anterior aspect of the S1 vertebrae. Atherosclerotic calcification of the abdominal aorta. CT/Spine Lumbar without Contrast IMPRESSION: 50% loss of height of the L5 vertebrae with vertebroplasty. Stable loss of height of the superior endplate of the L1 vertebrae. Electronically Signed: Len Cowan MD at 15:36 EDT , Service support ,
== END ==
PROVIDERS: PCP Family Medicine; Referring Provider Psychiatry & Neurology Neurology; Visit Provider Psychiatry & Neurology Neurology
DX: M54.5 Low back pain (principal); R53.1 Weakness
CPT/HCPCS: 72131

== ENCOUNTER 2021-11-19 15:05 | Outpatient (CLI) | payer MEDICARE, OTHER, SELFPAY ==
[2021-11-23 15:08] LABS: Albumin 3.3 g/dL (2.9-4.4); Alpha-1-Globulins 0.2 g/dL (0.0-0.4); Alpha-2-Globulins 1.1 g/dL (0.4-1.0); Immunoglobulin A 517 mg/dL (87-352); Immunoglobulin G 1163 mg/dL (586-1602); Immunoglobulin M 88 mg/dL (26-217)
[2021-11-23 17:55] LABS: Phenobarbital,Serum 4 ug/mL (15-40); Primidone, Serum 7.2 ug/mL (5.0-12.0)
== END 2021-11-19 23:59 | disposition home or self-care (01) ==
PROVIDERS: PCP Family Medicine; Referring Provider Psychiatry & Neurology Neurology; Visit Provider Psychiatry & Neurology Neurology
DX: F03.90 Unspecified dementia, unspecified severity, without behavioral disturbance, psychotic disturbance, mood disturbance, and anxiety (principal); G62.9 Polyneuropathy, unspecified; G25.0 Essential tremor
CPT/HCPCS: 36415; 80184; 80188; 82140; 82784; 84165; 86334; 86335

== ENCOUNTER → 2022-03-09 | Outpatient (CLI) | payer MEDICARE, MEDICAID, SELFPAY ==
[2022-03-09 17:59] LABS: Hematocrit 43.2 % (37-47); Hemoglobin 13.2 g/dL (12.0-15.0); Mean Corp Hgb Conc 30.6 g/dL (32-36); Mean Corpuscular Volume 98.2 fL (81-99); Mean Platelet Vol. 8.8 fl (6.2-12.0); Platelet Count 218 K/mm3 (150-450); RBC Distribution Width CV 14.6 % (11.6-14.6); White Blood Count 9.5 K/mm3 (4.4-11.0)
[2022-03-09 18:36] LABS: ALB/GLOB Ratio 0.7 RATIO (0.9-2.4); AST(SGOT) 10 U/L (15-37); Alanine Aminotransfer ALT/SGPT 17 U/L (13-56); Albumin, Serum 2.9 g/dL (3.2-5.0); Alkaline Phosphatase 66 U/L (45-117); Anion Gap 5 (5-15); BUN 23 mg/dL (7-18); BUN/Creat Ratio 35.2 RATIO (10-20); Calcium,Total 8.8 mg/dL (8.5-10.1); Chloride 104 mmol/L (98-107); Creatinine, Serum 0.65 mg/dL (0.55-1.02); EST Glomerular Filtration Rate 95 mL/min (>60); Est Glom Filt Rate - Afr Amer 115 mL/min (>60); Globulin 4.3 g/dL (2.2-4.2); Glucose 203 mg/dL (74-106); Potassium 4.6 mmol/L (3.5-5.1); Protein, Total 7.2 g/dL (6.4-8.2); Sodium Level 137 mmol/L (136-145); Thyroid Stim Hormone (TSH) 1.44 uIU/mL (0.358-3.74)
== END | disposition home or self-care (01) ==
PROVIDERS: PCP Family Medicine; Referring Provider Nurse Practitioner Family; Visit Provider Nurse Practitioner Family
DX: F03.90 Unspecified dementia, unspecified severity, without behavioral disturbance, psychotic disturbance, mood disturbance, and anxiety (principal); G40.A09 Absence epileptic syndrome, not intractable, without status epilepticus; G25.0 Essential tremor; R53.83 Other fatigue
CPT/HCPCS: 36415; 80053; 82140; 84443; 85027

== ENCOUNTER → 2023-08-03 | Outpatient (CLI) | payer MEDICARE, MEDICAID, SELFPAY ==
--- NOTE | 2023-08-03 15:31 | CT_ITS ---
STUDY: CT BRAIN WITHOUT CONTRAST REASON FOR EXAM: Female, 73 years old. Hydrocephalus; worsening dementia -- CC RESULTS TO PCP RADIATION DOSAGE (If Supplied By Facility): CTDIvol = ( 44.99 ) mGy, DLP = ( 796.11 ) mGycm TECHNIQUE: Transaxial CT imaging of the brain was performed without administration of intravenous contrast material. Individualized dose optimization techniques were used for this CT. COMPARISON: 02/07/2017 FINDINGS: Normal soft tissue structures. Normal calvarium. There is disproportionate enlargement of the lateral and third ventricles, as compared to the extra-axial spaces. The findings suggest normal pressure hydrocephalus (NPH). The degree of ventricular dilatation is similar to prior study. Normal white matter tracts of the cerebral hemispheres. Normal basal ganglia and thalami. Normal brainstem. Normal cerebellum. There is no intracranial hemorrhage. There are no findings of an acute ischemic infarction. Normal visualized paranasal sinuses. CT/Brain/Head without Contrast IMPRESSION: Continued dilatation of the lateral ventricles, grossly stable. Normal aqueduct and fourth ventricle. No change or acute abnormality. Electronically Signed: Andrea Chaudhari MD at 22:39 EST ,
== END | disposition home or self-care (01) ==
PROVIDERS: PCP Internal Medicine; Referring Provider Psychiatry & Neurology Neurology; Visit Provider Psychiatry & Neurology Neurology
DX: G91.9 Hydrocephalus, unspecified (principal); F03.90 Unspecified dementia, unspecified severity, without behavioral disturbance, psychotic disturbance, mood disturbance, and anxiety
CPT/HCPCS: 70450